=== PATIENT | female | born 2000 | race Caucasian/White ===

== ENCOUNTER 2019-01-22 11:46 | Emergency (ER) | payer OTHER ==
--- NOTE | 2019-01-22 14:00 | ER ---
Nurse's Notes [facility] Name: Esvin Tejeda Age: 18 yrs Sex: Female : 2000 Arrival Date: 01/22/2019 Time: 11:50 Bed 12 Private MD: Diagnosis: Amenorrhea, unspecified Presentation: 01/22 12:03 Presenting complaint: Patient states: "My period is 9 days late but I took a hb test and it was negative." Denies pain. Transition of care: patient was not received from another setting of care. Onset of symptoms was January 22, 2019. Risk Assessment: Do you want to hurt yourself or someone else? Patient reports no desire to harm self or others. Initial Sepsis Screen: Does the patient meet any 2 criteria? No. Patient's initial sepsis screen is negative. Does the patient have a suspected source of infection? No. Patient's initial sepsis screen is negative. Care prior to arrival: None. 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 - Social history:: Smoking status: Patient/guardian denies using tobacco. - Ebola Screening: : No symptoms or risks identified at this time. Screenin:54 Abuse screen: Denies threats or abuse. Denies injuries from another. Nutritional ss screening: No deficits noted. Tuberculosis screening: Never had TB. Fall Risk None identified. Assessment: 12:53 General: Appears in no apparent distress. comfortable, Behavior is calm, cooperative, ss Denies fever, feeling ill, fatigue, chills. Pain: Denies pain. Neuro: Level of Consciousness is awake, alert, obeys commands, Oriented to person, place, time, situation. Cardiovascular: Capillary refill < 3 seconds is brisk in bilateral fingers. Respiratory: Airway is patent Respiratory effort is even, unlabored, Respiratory pattern is regular, symmetrical. GI: Patient currently denies abdominal pain, diarrhea, nausea, vomiting. : No signs and/or symptoms were reported regarding the genitourinary system. Reports 9 days late on menstrual cycle. EENT: Throat is clear. Derm: Skin is intact, is healthy with good turgor, Skin is dry, Skin is pink, warm \\T\\ dry. normal. Musculoskeletal: Circulation, motion, and sensation intact. Range of motion: intact in all extremities. Vital Signs: 12:05 BP 119 / 61; Pulse 76; Resp 16; Temp 97.8; Pulse Ox 100% on R/A; Weight 68.95 kg; hb Height 5 ft. 4 in. (162.56 cm); Pain 0/10; 12:05 Body Mass Index 26.09 (68.95 kg, 162.56 cm) hb ED Course: 11:50 Patient arrived in ED. mr 12:05 Triage completed. 12:05 Arm band placed on left wrist. 12:47 Nikita Yanes PA is PHCP. [facility] 12:47 Isreal Pozo MD is Attending Physician. [facility] 12:53 Radha Ackerman, LUIS is Primary Nurse. ss 12:54 Patient has correct armband on for positive identification. Bed in low position. Call ss light in reach. 13:07 Test, Serum Sent. ss 14:03 No provider procedures requiring assistance completed. Patient did not have IV access ss during this emergency room visit. Administered Medications: No medications were administered Outcome: 13:59 Discharge ordered by . [facility] 14:03 Discharged to home ambulatory. ss 14:03 Condition: good 14:03 Discharge instructions given to patient, Instructed on discharge instructions, follow up and referral plans. Demonstrated understanding of instructions, follow-up care. 14:04 Patient left the ED. ss Signatures: Alia Lozano mr Radha Ackermna, RN RN Nikita Yanes PA PA [facility] Heavenly Pizano RN RN
--- NOTE | 2019-01-22 14:01 | EDPHYS ---
Physician Documentation [facility] Name: Esvin Tejeda Age: 18 yrs Sex: Female : 2000 Arrival Date: 01/22/2019 Time: 11:50 Bed 12 Private MD: ED Physician Isreal Pozo HPI: 01/22 13:57 This 18 yrs old Female presents to ER via Ambulatory with complaints of jr8 possible . 13:57 Onset: The symptoms/episode began/occurred at an unknown time. Associated signs and jr8 symptoms: The patient has no apparent associated signs or symptoms. Modifying factors: The patient symptoms are alleviated by nothing, the patient symptoms are aggravated by nothing. The patient has not experienced similar symptoms in the past. The patient has not recently seen a physician. Patient stated that she has never missed a period before. Was suppose to start on January 13 and still has not. Stated that she took two home ones both negative. Still has not had period. Wants blood test to confirm . 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 - Social history:: Smoking status: Patient/guardian denies using tobacco. - Ebola Screening: : No symptoms or risks identified at this time. ROS: 13:57 Eyes: Negative for injury, pain, redness, and discharge, ENT: Negative for injury, jr8 pain, and discharge, Neck: Negative for injury, pain, and swelling, Cardiovascular: Negative for chest pain, palpitations, and edema, Respiratory: Negative for shortness of breath, cough, wheezing, and pleuritic chest pain, Abdomen/GI: Negative for abdominal pain, nausea, vomiting, diarrhea, and constipation, Back: Negative for injury and pain, MS/Extremity: Negative for injury and deformity, Skin: Negative for injury, rash, and discoloration, Neuro: Negative for headache, weakness, numbness, tingling, and seizure. 13:57 : Positive for menstrual abnormality, missed period. jr8 Exam: 13:57 Eyes: Pupils equal round and reactive to light, extra-ocular motions intact. Lids and jr8 lashes normal. Conjunctiva and sclera are non-icteric and not injected. Cornea within normal limits. Periorbital areas with no swelling, redness, or edema. ENT: Nares patent. No nasal discharge, no septal abnormalities noted. Tympanic membranes are normal and external auditory canals are clear. Oropharynx with no redness, swelling, or masses, exudates, or evidence of obstruction, uvula midline. Mucous membranes moist. Neck: Trachea midline, no thyromegaly or masses palpated, and no cervical lymphadenopathy. Supple, full range of motion without nuchal rigidity, or vertebral point tenderness. No Meningismus. Cardiovascular: Regular rate and rhythm with a normal S1 and S2. No gallops, murmurs, or rubs. Normal PMI, no JVD. No pulse deficits. Respiratory: Lungs have equal breath sounds bilaterally, clear to auscultation and percussion. No rales, rhonchi or wheezes noted. No increased work of breathing, no retractions or nasal flaring. Abdomen/GI: Soft, non-tender, with normal bowel sounds. No distension or tympany. No guarding or rebound. No evidence of tenderness throughout. Back: No spinal tenderness. No costovertebral tenderness. Full range of motion. Skin: Warm, dry with normal turgor. Normal color with no rashes, no lesions, and no evidence of cellulitis. MS/ Extremity: Pulses equal, no cyanosis. Neurovascular intact. Full, normal range of motion. Neuro: Awake and alert, GCS 15, oriented to person, place, time, and situation. Cranial nerves II-XII grossly intact. Motor strength 5/5 in all extremities. Sensory grossly intact. Cerebellar exam normal. Normal gait. Vital Signs: 12:05 BP 119 / 61; Pulse 76; Resp 16; Temp 97.8; Pulse Ox 100% on R/A; Weight 68.95 kg; hb Height 5 ft. 4 in. (162.56 cm); Pain 0/10; 12:05 Body Mass Index 26.09 (68.95 kg, 162.56 cm) hb MDM: 12:47 Patient medically screened. jr8 13:57 Data reviewed: vital signs, nurses notes, lab test result(s), and as a result, I will jr8 discharge patient. Data interpreted: Pulse oximetry: on room air is 100 %. Interpretation: normal. Counseling: I had a detailed discussion with the patient and/or guardian regarding: the historical points, exam findings, and any diagnostic results supporting the discharge/admit diagnosis, the need for outpatient follow up, a family practitioner, to return to the emergency department if symptoms worsen or persist or if there are any questions or concerns that arise at home. 01/22 12:55 Order name: Test, Serum; Complete Time: 13:56 jr8 Administered Medications: No medications were administered Disposition: 01/23 07:46 Co-signature as Attending Physician, Isreal Pozo MD I agree with the assessment and hi plan of care. Disposition: 01/22/19 13:59 Discharged to Home. Impression: Amenorrhea, unspecified. - Condition is Stable. - Discharge Instructions: Primary Amenorrhea. - Medication Reconciliation Form, Thank You Letter, Antibiotic Education, Prescription Opioid Use form. - Follow up: Private Physician; When: As needed; Reason: Recheck today's complaints, Continuance of care, Re-evaluation by your physician. - Problem is new. - Symptoms have improved. 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 Impression: Amenorrhea, unspecified. ss Condition is Stable. Forms are Medication Reconciliation Form, Thank You Letter, Antibiotic Education, Prescription Opioid Use. Follow up: Private Physician; When: As needed; Reason: Recheck today's complaints, Continuance of care, Re-evaluation by your physician. Problem is new. Symptoms have improved. jr8
== END 2019-01-22 14:04 | disposition home or self-care (01) ==
LOC: ER 11:46
DX: N91.2 Amenorrhea, unspecified (principal)
CPT/HCPCS: 36415; 84703; 99283

== ENCOUNTER 2019-09-07 12:39 | Emergency (ER) | payer OTHER ==
--- NOTE | 2019-09-07 13:04 | EDPHYS ---
Physician Documentation [facility] Name: Esvin Tejeda Age: 18 yrs Sex: Female : 2000 Arrival Date: 09/07/2019 Time: 12:42 Bed 18 Private MD: ED Physician Denver Guerrero HPI: 09/06 13:09 This 18 yrs old Female presents to ER via Ambulatory with complaints of jr8 Medical Clearance. 13:09 Patient came in for general evaluation for Fit for duty for so she could [place]. Stated that she also is concerned for vaginal yeast infection. Denies s/s of URI or lower respiratory infection. No recent travel to infected regions and no subjective or objective fevers or contacts with infected or suspected infected individuals . Severity of symptoms: At their worst the symptoms were very mild in the emergency department the symptoms are unchanged. The patient has not experienced similar symptoms in the past. The patient has not recently seen a physician. 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 - Social history:: Smoking status: Patient denies any tobacco usage or history of. ROS: 13:09 Eyes: Negative for injury, pain, redness, and discharge, ENT: Negative for injury, jr8 pain, and discharge, Neck: Negative for injury, pain, and swelling, Cardiovascular: Negative for chest pain, palpitations, and edema, Respiratory: Negative for shortness of breath, cough, wheezing, and pleuritic chest pain, Abdomen/GI: Negative for abdominal pain, nausea, vomiting, diarrhea, and constipation, Back: Negative for injury and pain, MS/Extremity: Negative for injury and deformity, Skin: Negative for injury, rash, and discoloration, Neuro: Negative for headache, weakness, numbness, tingling, and seizure. 13:09 : Positive for vaginal itching. Exam: 13:09 Eyes: Pupils equal round and reactive to light, extra-ocular motions intact. Lids and jr8 lashes normal. Conjunctiva and sclera are non-icteric and not injected. Cornea within normal limits. Periorbital areas with no swelling, redness, or edema. ENT: Nares patent. No nasal discharge, no septal abnormalities noted. Tympanic membranes are normal and external auditory canals are clear. Oropharynx with no redness, swelling, or masses, exudates, or evidence of obstruction, uvula midline. Mucous membranes moist. Neck: Trachea midline, no thyromegaly or masses palpated, and no cervical lymphadenopathy. Supple, full range of motion without nuchal rigidity, or vertebral point tenderness. No Meningismus. Cardiovascular: Regular rate and rhythm with a normal S1 and S2. No gallops, murmurs, or rubs. Normal PMI, no JVD. No pulse deficits. Respiratory: Lungs have equal breath sounds bilaterally, clear to auscultation and percussion. No rales, rhonchi or wheezes noted. No increased work of breathing, no retractions or nasal flaring. Abdomen/GI: Soft, non-tender, with normal bowel sounds. No distension or tympany. No guarding or rebound. No evidence of tenderness throughout. Back: No spinal tenderness. No costovertebral tenderness. Full range of motion. Skin: Warm, dry with normal turgor. Normal color with no rashes, no lesions, and no evidence of cellulitis. MS/ Extremity: Pulses equal, no cyanosis. Neurovascular intact. Full, normal range of motion. Neuro: Awake and alert, GCS 15, oriented to person, place, time, and situation. Cranial nerves II-XII grossly intact. Motor strength 5/5 in all extremities. Sensory grossly intact. Cerebellar exam normal. Normal gait. Vital Signs: 12:51 BP 120 / 70; Pulse 84; Resp 18; Temp 98.4; Pulse Ox 100% on R/A; Weight 68.04 kg; Pain ph 0/10; MDM: 12:45 Patient medically screened. 8 13:02 Data reviewed: vital signs, nurses notes, and as a result, I will discharge patient. jr8 Data interpreted: Pulse oximetry: on room air is 100 %. Interpretation: normal. Counseling: I had a detailed discussion with the patient and/or guardian regarding: the historical points, exam findings, and any diagnostic results supporting the discharge/admit diagnosis, the need for outpatient follow up, a family practitioner, to return to the emergency department if symptoms worsen or persist or if there are any questions or concerns that arise at home. ED course: Patient with no susspected or actual exposure to COVID-19 individuals. No travel. Has been local to [place] since she has been off. No s/s of URI or lower respiratory infection. Medically cleared and [place] . Administered Medications: 13:11 Drug: DiFLUcan 150 mg Route: PO; 13:16 Follow up: Response: No adverse reaction Disposition: 18:57 Co-signature as Attending Physician, Denver Guerrero MD Did not see or evaluate patient. ps1 Signature for administrative purposes. . Disposition: 09/07/19 13:03 Discharged to Home. Impression: Candidiasis of vulva and vagina. - Condition is Stable. - Discharge Instructions: Vaginal Yeast Infection, Adult. - Work release form, Medication Reconciliation Form, Thank You Letter, Antibiotic Education, Prescription Opioid Use form. - Follow up: Private Physician; When: As needed; Reason: Recheck today's complaints, Continuance of care, Re-evaluation by your physician. - Problem is new. - Symptoms have improved. Signatures: Nikita Yanes PA PA jr8 Jenn Milner, LUIS RN Aquiles Waldron, MD BRODIE Goff ps1 Corrections: (The following items were deleted from the chart) 13:16 13:03 09/07/2019 13:03 Discharged to Home. Impression: Candidiasis of vulva and vagina. Condition is Stable. Forms are Medication Reconciliation Form, Thank You Letter, Antibiotic Education, Prescription Opioid Use. Follow up: Private Physician; When: As needed; Reason: Recheck today's complaints, Continuance of care, Re-evaluation by your physician. Problem is new. Symptoms have improved. jrAbdiaziz
--- NOTE | 2019-09-07 13:04 | ER ---
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 Coronavirus screen: The patient has NOT traveled to a country currently being monitored by the [facility] within the last 14 days. The patient has NOT had contact with any known and/or suspected case of coronavirus. Ebola Screen: No symptoms or risks identified at this time. Initial Sepsis Screen: Does the patient meet any 2 criteria? No. Patient's initial sepsis screen is negative. Does the patient have a suspected source of infection? No. Patient's initial sepsis screen is negative. Risk Assessment: Do you want to hurt yourself or someone else? Patient reports no desire to harm self or others. 12:51 Method Of Arrival: Ambulatory ph 12:51 Acuity: JEREMIAH 5 ph 13:05 Onset of symptoms was September 07, 2019. 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 - Social history:: Smoking status: Patient denies any tobacco usage or history of. Screenin:14 Abuse screen: Denies threats or abuse. Denies injuries from another. Nutritional screening: No deficits noted. Tuberculosis screening: No symptoms or risk factors identified. Fall Risk None identified. Assessment: 13:00 General: Appears in no apparent distress. Behavior is calm, cooperative, appropriate for age. Pain: Denies pain. Neuro: Level of Consciousness is awake, alert, obeys commands, Oriented to person, place, time, situation, Appropriate for age. Cardiovascular: Capillary refill < 3 seconds. Respiratory: Airway is patent Respiratory effort is even, unlabored, Respiratory pattern is regular, symmetrical. GI: Abdomen is flat, non-distended. : Reports discharge, from vagina that is. EENT: No signs and/or symptoms were reported regarding the EENT system. Derm: Skin is intact, is healthy with good turgor, Skin is pink, warm \\T\\ dry. normal. Musculoskeletal: Circulation, motion, and sensation intact. Vital Signs: 12:51 BP 120 / 70; Pulse 84; Resp 18; Temp 98.4; Pulse Ox 100% on R/A; Weight 68.04 kg; Pain ph 0/10; ED Course: 12:42 Patient arrived in ED. ag5 12:43 None, None is Private Physician. ag5 12:44 Nikita [facility]anes [facility]. jr8 12:44 Denver Guerrero MD is Attending Physician. jr8 12:51 Aquiles Waldron is Primary Nurse. wh 12:54 Triage completed. ph 12:55 Arm band placed on Patient placed in an exam room. ph 13:05 Patient has correct armband on for positive identification. Bed in low position. Call light in reach. Side rails up X 1. Pulse ox on. NIBP on. 13:14 No provider procedures requiring assistance completed. Patient did not have IV access during this emergency room visit. Administered Medications: 13:11 Drug: DiFLUcan 150 mg Route: PO; 13:16 Follow up: Response: No adverse reaction Outcome: 13:03 Discharge ordered by . jr8 13:14 Discharged to home ambulatory, with family. 13:14 Condition: stable 13:14 Discharge instructions given to patient, family, Instructed on discharge instructions, follow up and referral plans. POC Demonstrated understanding of instructions, follow-up care, POC 13:16 Patient left the ED. Signatures: Nikita Yanes PA PA jr8 Jenn Milner RN RN Aquiles Waldron Dread Garcia [facility]
[2019-09-07] MEDS ORDERED: FLUCONAZOLE 100 MG TAB ONE (13:10)
[2019-09-07 13:22] VITALS: BP 120/70; TEMP 98.4; O2SAT 100
== END 2019-09-07 13:16 | disposition home or self-care (01) ==
LOC: ER 12:39
DX: B37.3 Candidiasis of vulva and vagina (principal)
CPT/HCPCS: 99283